=== PATIENT | female | born 1990 | race Two or more races ===

== ENCOUNTER 2020-04-26 16:32 | Emergency (ER) | payer OTHER ==
[~2020-04-26] VITALS: Ht 152.4 cm; Wt 74.8 kg
[2020-04-26] MEDS ORDERED: AUGMENTIN 875-1 EAC1 ORAL (16:48)
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
[2020-04-26 16:54] VITALS: BP 130/88
[2020-04-26] MEDS ORDERED: Tetanus/Diptheria/Pertussis IM ONE (17:00)
[2020-04-26] MEDS ORDERED: Augmentin 875mg Tab ORAL ONE (17:00)
--- NOTE | 2020-04-26 17:10 | NUR ---
ED Nurse Note: Pt cleared by health care Provider for discharge. DC instructions/prescription was given and explained to pt and verbalized understanding of teachings. All medical devices such as ID band removed. Pt is AAO x4, ambulatory and left with all personal belongings. pt tolerates meds well work comp paperwork given to pt for employer
== END 2020-04-26 17:10 | disposition home or self-care (01) ==
LOC: EMR 17:09
DX: S61.451A Open bite of right hand, initial encounter (principal); Z23 Encounter for immunization; W50.3XXA Accidental bite by another person, initial encounter; Y92.9 Unspecified place or not applicable; Z88.6 Allergy status to analgesic agent
CPT/HCPCS: 90471; 90715; 99282